=== PATIENT | female | born 1980 | race Caucasian/White ===

== ENCOUNTER 2023-10-09 11:54 | Outpatient (AMB) | payer MEDICAID, SELFPAY ==
--- NOTE | 2023-10-09 12:04 | MHC.OFFVIS ---
Vital Signs 10/09/23 12:11 Height 5 ft 2 in Weight 151 lb 3.794 oz BMI 27.7 BP 130/86 Blood Pressure Location Lt brachial Position Sitting Pulse 62 Pulse Source Pulse Oximeter Pulse Oximetry (%) 100 Oxygen Delivery Method Room Air Intake Visit Reasons: colo scrn; small bowel obstruction Intake Note: Kandy presents in office today for a scheduled initial assessment and colo scrn. CC; Pt reports that they were hospitalized in 01/2023. Pt reports that they had been diagnosed with a small bowel obstruction. Pt also has previous hx of GERD which they have a few questions about. Pt denies any additional concerns or questions. Pt reports that they have previous hx of colo s/p, within the last 5 years. Hard Candy Batch Mixer Required: No Allergies No Known Allergies Allergy (Verified 10/09/23 12:05) HPI HPI colo scrn; small bowel obstruction: Details: 42-year-old female with past medical history of migraine headaches, fibromyalgia, depression/anxiety, history of hysterectomy, abdominal pain, gastric bypass in 2016, SBO in January of 2023 is here today for initial consultation. Patient reports that back in January she was admitted to [facility] with small-bowel obstruction. No bowel resection done at that time. Diagnostic laparoscopy with laparoscopic lysis of adhesions, repair of iatrogenic enterotomy and serosal tear. Patient reports that she has frequent abdominal bloating and discomfort. Pain feels like cramping and sharp at times. Patient reports that she feels like she is moving her bowels well without any issues at this time. Not on any particular diet at this moment. Patient denies any nausea or vomiting. Reports dyspepsia with occasional dysphagia without odynophagia. Denies any melena, hematochezia, unintentional weight loss or ribbon like stools. [facility] Medical History Dizziness Fibromyalgia Low back pain Migraine Anxiety Cobalamin deficiency Premature menopause Surgical History History of hysterectomy History of gastric bypass Family History Father Hypertension Myocardial infarction Heart disease Type 2 diabetes mellitus Mother Hypertension Type 2 diabetes mellitus Depressive disorder Maternal Grandmother Type 2 diabetes mellitus Malignant tumor of pancreas Physical Exam Vital Signs: Last Vital Signs Pulse 62 10/09/23 12:11 BP 130/86 10/09/23 12:11 Pulse Ox 100 10/09/23 12:11 Oxygen Delivery Method Room Air 10/09/23 12:11 BMI result Body Mass Index 27.7 Const General: healthy appearing, no acute distress and well developed Nutritional Appearance: well nourished Orientation/consciousness: patient oriented x3 Resp Effort & Inspection: normal respiratory effort, able to speak in complete sentences, no tracheal deviation and symmetric chest movement Auscultation: clear to auscultation bilaterally Cardio Rate: regular rate GI Inspection: Yes normal to inspection and No distended Palpation (GI): Soft to palpation, not firm, nontender and No hepatosplenomegaly present Auscultation: normal bowel sounds General: Yes no CVA tenderness Back/Spine/Pelvis Back: no CVA tenderness Skin General skin exam: elasticity normal, turgor normal and dry skin Neuro General: patient oriented x3 Psych Appearance: grossly normal Mental Status: mental status grossly normal Assessment & Plan Assessment & Plan (1) Postprandial epigastric pain: Code(s): R10.13 - Epigastric pain (2) GERD (gastroesophageal reflux disease): Code(s): K21.9 - Gastro-esophageal reflux disease without esophagitis Qualifiers: Esophagitis presence: esophagitis presence not specified Qualified Code(s): K21.9 - Gastro-esophageal reflux disease without esophagitis (3) Dysphagia: Code(s): R13.10 - Dysphagia, unspecified Qualifiers: Dysphagia type: pharyngoesophageal phase Qualified Code(s): R13.14 - Dysphagia, pharyngoesophageal phase (4) Postprandial abdominal bloating: Code(s): R14.0 - Abdominal distension (gaseous) (5) Constipation: Code(s): K59.00 - Constipation, unspecified Qualifiers: Constipation type: slow transit constipation Qualified Code(s): K59.01 - Slow transit constipation Plan Will rule out celiac, will check vitamin B12, folate and vitamin-D levels. Will check iron profile. History of gastric bypass possibility of malabsorption. Will check CBC and CMP. We will also check lipase patient does report epigastric pain and sometimes pain in left upper quadrant. Possible that this pain is related also to patient not emptying her bowels completely. Occasional loose stools with abdominal bloating. Discussed with patient low FODMAP diet. List of food recommended as well as list of food to avoid given to patient. If patient continues to have symptoms even though she moves her bowels we might rule out pancreatic insufficiency. Reports significant reflux will send patient for upper GI small bowels study. Will start her on pantoprazole in the morning half an hour before breakfast and famotidine at bedtime. Avoid dietary triggers and late night snacking. Staying upright for minimum 3 hours after meals discussed with patient. Patient will start taking senna daily if 2 tablets too much take 1. Increase fluid intake and activity to promote better bowel motility. Patient will return in 2-3 months, sooner on as needed basis. She is agreeable to this plan and verbalizes understanding of instructions. She was given the opportunity to ask questions and all questions answered. Thank you for allowing me to participate in her care Orders: Orders Transglutaminase Ab IgG Today R10.9 - Unspecified abdominal pain Vitamin B12 and Folate Today R19.7 - Diarrhea, unspecified Vitamin D 25-OH (D2 and D3) Today E55.9 - Vitamin D deficiency, unspecified FL upper GI small bowel Today R13.10 - Dysphagia, unspecified Transglutaminase IgA Today R10.9 - Unspecified abdominal pain IRON PROFILE Today D64.9 - Anemia, unspecified Lipase Today R10.9 - Unspecified abdominal pain TSH reflex Free T4 Today K59.00 - Constipation, unspecified Complete Blood Count no Diff Today K21.9 - Gastro-esophageal reflux disease without esophagitis Comprehensive Met. Panel Today K21.9 - Gastro-esophageal reflux disease without esophagitis Medications: New pantoprazole take one tablet half an hour before breakfast 40 mg PO DAILY 30 tabs 3RF K21.9 - Gastro-esophageal reflux disease without esophagitis famotidine 40 mg PO BEDTIME 30 tabs 3RF K21.9 - Gastro-esophageal reflux disease without esophagitis sennosides (Natural Senna Laxative) 17.2 mg (2 x 8.6 mg) PO BEDTIME 60 tabs 3RF constipation K59.00 - Constipation, unspecified Coding Level of Care Code New Pt Level 4 (54716) Diagnoses Postprandial epigastric pain R10.13 Gastroesophageal reflux disease, unspecified whether esophagitis present K21.9 Esophagitis presence: esophagitis presence not specified Pharyngoesophageal dysphagia R13.14 Dysphagia type: pharyngoesophageal phase Postprandial abdominal bloating R14.0 Slow transit constipation K59.01 Constipation type: slow transit constipation Time Spent (min) 50 Comment 30 minutes spent with patient and 20 minutes spent reviewing all her records
[2023-10-09 12:11] VITALS: BP 130/86; PULSE 62; O2SAT 100; BMI 27.7
== END 2023-10-09 12:46 | disposition home or self-care (01) ==
PROVIDERS: PCP Nurse Practitioner; Visit Provider Nurse Practitioner Family
DX: R10.13 Epigastric pain (principal); K21.9 Gastro-esophageal reflux disease without esophagitis; R13.14 Dysphagia, pharyngoesophageal phase; R14.0 Abdominal distension (gaseous); K59.01 Slow transit constipation
CPT/HCPCS: 99204

== ENCOUNTER → 2023-10-09 11:54 | Outpatient (BNVA) | payer MEDICAID, SELFPAY | PROVIDERS: PCP Nurse Practitioner; Visit Provider Nurse Practitioner Family | DX: K21.9 Gastro-esophageal reflux disease without esophagitis (principal); K59.01 Slow transit constipation; R14.0 Abdominal distension (gaseous); R10.13 Epigastric pain; R13.10 Dysphagia, unspecified; R19.7 Diarrhea, unspecified | CPT/HCPCS: 99202 ==

== ENCOUNTER 2023-11-28 08:15 | Outpatient (REF) | payer MEDICAID, SELFPAY ==
--- NOTE | ~2023-11-28 | FL_ITS ---
EXAMINATION: XR FLUOROSCOPY UPPER GI WITH SMALL BOWEL FOLLOW-THROUGH CLINICAL INFORMATION: 43-year-old female with prior history of gastric bypass surgery, complaining of dysphagia, burning abdominal and epigastric pain, and diarrhea. COMPARISON: None TECHNIQUE: Fluoroscopic air contrast upper GI examination was performed utilizing standard techniques with thin and thick barium and effervescent granules. Numerous spot images were obtained. Several fluoroscopic image hold cine sequences were also obtained. This was followed by small bowel series utilizing overhead images at standard intervals, with fluoroscopic spot imaging of the small bowel and terminal ileum during the exam. FINDINGS: UPPER GI SERIES: Lateral cine images of the oropharynx and hypopharynx demonstrate normal swallow mechanism with normal epiglottic inversion and soft palate elevation. No tracheal penetration, glottic or subglottic aspiration identified. No nasopharyngeal reflux present. Hypopharyngeal structures appear normal without evidence of mass or diverticulum. There was mild cricopharyngeal achalasia. Dual and single contrast images of the esophagus demonstrate normal caliber, contour, and mucosal pattern. Persistent contractile appearing narrowing of the upper esophagus at the thoracic inlet, seen on all series, possibly on esophageal web or unusual esophageal contraction. (Refer to RF 1-8, image 24). Otherwise, no additional evidence of stricture, mass, or ulcerations identified. Esophageal peristalsis was mildly disorganized. Small type I hiatus hernia. No significant gastroesophageal reflux was seen during the course of the examination and on reflux views. Dual contrast and single contrast images of the stomach demonstrated normal expected postoperative appearance of the gastric pouch and gastrojejunostomy. There are a few tiny foci of contrast pooling within the gastric pouch suggesting superficial aphthous ulcers. Findings suggest mild erosive gastritis. Contrast freely passed into the proximal jejunum without delay. SMALL BOWEL SERIES: Valet Cashier image demonstrates surgical chain sutures overlying the epigastric region and extending into the left paramedian and left mid abdomen from prior gastric bypass surgery. There is a normal/nonspecific bowel gas pattern. There is no abnormally dilated loop. There is a normal amount of stool within the colon. There are no abnormal soft tissue calcifications identified. No organomegaly identified. Lung bases are clear. Heart size is normal. Bony structures demonstrate a mild levoconvex thoracolumbar scoliosis, apex at L1-2. The SI joints have a normal appearance. The hip joints have a normal appearance. No suspicious bone lesions. The gastrojejunostomy is widely patent without functional obstruction. No definite reflux of contrast into the excluded duodenum or stomach, nor at the efferent chele loop. The jejunal afferent Chele loop has a mildly thickened fold appearance, which may represent mild enteritis/peptic disease. The remainder of the jejunum has a normal appearance. The ileum has a normal fold pattern and caliber. Overhead and spot images demonstrate no strictures, mass, or additional abnormal mucosal patterns. No significant dilution of contrast. Contrast reached the right colon by 30 minutes. FLUOROSCOPY TIME: 5 minutes Number of Spot Images: 2 overheads, 2 director of scout work overheads, and 17 spot images Number of cines obtained: 14 DOSE AREA PRODUCT: [id number] uGy-m2 (microgray-meter squared) FL/FL upper GI w air w SBFT IMPRESSION: 1. Mild cricopharyngeal achalasia. 2. Mild disorganized esophageal peristalsis. Persistent short segment contractile narrowing of the upper one third of the esophagus at the thoracic inlet, possibly representing a web or unusual esophageal contraction. No definite mucosal abnormalities of the esophagus. 3. Small type I hiatus hernia. 4. No definite gastroesophageal reflux identified during the course of the exam. 5. Expected appearance of the gastric pouch and jejunostomy postoperative. Several small foci of contrast pooling within the gastric pouch may represent superficial aphthous type ulcers, concerning for erosive gastritis. 6. The jejunal afferent chele loop demonstrates mild fold thickening, which may be secondary to peptic disease/enteritis. 7. No reflux into the efferent Chele loop or excluded stomach. 8. Small bowel series shows no additional abnormalities in the jejunum or ileum. Contrast reaches the right colon in 30 minutes. Electronically signed by: Dharmesh De Santiago MD 11/28/2023 11:47 AM EDT
== END 2023-11-28 08:16 | disposition home or self-care (01) ==
LOC: HO.XRAY 08:15
PROVIDERS: PCP Nurse Practitioner; Visit Provider Nurse Practitioner Family
DX: R13.10 Dysphagia, unspecified (principal)
CPT/HCPCS: 74246; 74248

== ENCOUNTER → 2023-11-28 08:23 | Outpatient (BNV) | payer MEDICAID, SELFPAY | PROVIDERS: PCP Nurse Practitioner; Visit Provider Radiology Diagnostic Radiology | DX: R13.10 Dysphagia, unspecified (principal); R10.13 Epigastric pain; R19.7 Diarrhea, unspecified; Z98.84 Bariatric surgery status | CPT/HCPCS: 74246; 74248 ==

== ENCOUNTER 2023-12-25 08:54 | Outpatient (REF) | payer MEDICAID, SELFPAY ==
[2023-12-25 09:39] LABS: Hematocrit 36.2 % (37.0-47.0); Hemoglobin 11.7 g/dl (12.0-16.0); Mean Corpuscular HGB Conc 32.3 g/dl (31.0-35.0); Mean Corpuscular Hemoglobin 28.2 pg (27.0-33.0); Mean Corpuscular Volume 87.2 fL (80.0-98.0); Mean Platelet Volume 9.4 fL (9.4-12.3); Platelet Count 313 X10*3/uL (160-400); Red Blood Count 4.15 X10*6/uL (4.20-5.50); Red Cell Distribution Width 15.4 % (11.0-16.0); White Blood Count 6.9 X10*3/uL (4.8-10.8)
[2023-12-25 12:14] LABS: Alanine Aminotransferase 27 U/L (0-31); Albumin Level 4.1 g/dL (3.5-5.0); Alkaline Phosphatase 97 U/L (39-117); Anion Gap 10 (12-20); Aspartate Amino Transferase 30 U/L (5-31); Bilirubin Total 0.3 mg/dL (0.0-1.0); Blood Urea Nitrogen 21 mg/dL (9-16); Carbon Dioxide 26 mmol/L (22-29); Chloride 109 mmol/L (96-108); Estimated Glomerular Filt Rate > 60; Glucose Random 90 mg/dL (60-115); Iron 36 mcg/dL (30-160); Lipase 59 U/L (8-78); Percent Iron Saturation 9 % (15-50); Potassium 4.2 mmol/L (3.3-5.1); Sodium 141 mmol/L (135-145); Total Iron Binding Capacity 388 mcg/dL (228-428); Total Protein 7.6 g/dL (6.5-8.0); Unsaturated Iron Binding 352 ug/dL
[2023-12-25 12:52] LABS: Folate 12.7 ng/mL (> or = 4.0); Vitamin B12 395 pg/mL (200-900)
[2023-12-25 12:53] LABS: TSH reflex Free T4 1.77 uIU/mL (0.32-4.0)
[2023-12-26 19:44] LABS: Transglutaminase Ab IgG <1.0 U/mL; Transglutaminase IgA <1.0 U/mL
[2023-12-29 16:29] LABS: Vitamin D 25-OH, D2 <4 ng/mL; Vitamin D 25-OH, D3 33 ng/mL; Vitamin D 25-OH, Total 33 ng/mL (30-100)
== END 2023-12-25 08:55 | disposition home or self-care (01) ==
LOC: HO.LAB 08:54
PROVIDERS: PCP Nurse Practitioner; Visit Provider Nurse Practitioner Family
DX: K21.9 Gastro-esophageal reflux disease without esophagitis (principal); D64.9 Anemia, unspecified; R10.9 Unspecified abdominal pain; R19.7 Diarrhea, unspecified; E55.9 Vitamin D deficiency, unspecified; K59.00 Constipation, unspecified
CPT/HCPCS: 36415; 80053; 82306; 82607; 82746; 83540; 83690; 84443; 85027; 86364

== ENCOUNTER 2023-12-27 09:01 | Outpatient (AMB) | payer MEDICAID, SELFPAY ==
--- NOTE | 2023-12-27 09:02 | MHC.OFFVIS ---
Vital Signs 12/27/23 09:03 Height 5 ft 2 in Weight 153 lb 14.122 oz BMI 28.1 BP 108/66 Blood Pressure Location Rt brachial Position Sitting Pulse 66 Pulse Source Pulse Oximeter Pulse Oximetry (%) 99 Oxygen Delivery Method Room Air Intake Visit Reasons: 2 month follow up Intake Note: PRESCRIPTIONS LAST GENERATED sennosides 8.6 mg tablet?(Natural Senna Laxative)?17.2 mg (2 x 8.6 mg) PO BEDTIME 60 tabs 3RF Zhou,Sharlene D 10/09/23 12:35 (Transmitted) famotidine 40 mg tablet?40 mg PO BEDTIME 30 tabs 3RF Zhou,Sharlene D 10/09/23 12:35 (Transmitted) pantoprazole 40 mg tablet,delayed release?40 mg PO DAILY 30 tabs 3RF Zhou,Sharlene D 10/09/23 12:35 (Transmitted) Relevant Flags or Indicators ? Requires Glue Bone Drier? N; Pt was reminded to have labs done prior to appt on 12/23/2023 Kandy presents in office today for a scheduled 2 mos FUV. CC; Labs, and med orders placed. ?UGIS also performed (11.28.23) Relevant GI Sx as reported per pt? Nausea ? Reflux ? Dysphagia ? Fecal abnormalities o?? Constipation -- Intermittently o?? Diarrhea ? Abdominal Pain o?? Lower B/L ? Bloating ? Hx of any recent surgeries? None Pt reports that sx have not improved since their last visit. Glue Bone Drier Required: No Allergies No Known Allergies Allergy (Verified 12/27/23 09:03) HPI HPI 2 month follow up: Details: LAST VISIT: Postprandial epigastric pain GERD (gastroesophageal reflux disease) Dysphagia Postprandial abdominal bloating Constipation Plan Will rule out celiac, will check vitamin B12, folate and vitamin-D levels. Will check iron profile. History of gastric bypass possibility of malabsorption. Will check CBC and CMP. We will also check lipase patient does report epigastric pain and sometimes pain in left upper quadrant. Possible that this pain is related also to patient not emptying her bowels completely. Occasional loose stools with abdominal bloating. Discussed with patient low FODMAP diet. List of food recommended as well as list of food to avoid given to patient. If patient continues to have symptoms even though she moves her bowels we might rule out pancreatic insufficiency. Reports significant reflux will send patient for upper GI small bowels study. Will start her on pantoprazole in the morning half an hour before breakfast and famotidine at bedtime. Avoid dietary triggers and late night snacking. Staying upright for minimum 3 hours after meals discussed with patient. Patient will start taking senna daily if 2 tablets too much take 1. Increase fluid intake and activity to promote better bowel motility. Patient will return in 2-3 months, sooner on as needed basis. She is agreeable to this plan and verbalizes understanding of instructions. She was given the opportunity to ask questions and all questions answered. ? Thank you for allowing me to participate in her care Orders Orders Transglutaminase Ab IgG Today R10.9 Vitamin B12 and Folate Today R19.7 Vitamin D 25-OH (D2 and D3) Today E55.9 FL upper GI small bowel Today R13.10 Transglutaminase IgA Today R10.9 IRON PROFILE Today D64.9 Lipase Today R10.9 TSH reflex Free T4 Today K59.00 Complete Blood Count no Diff Today K21.9 Comprehensive Met. Panel Today K21.9 Medications New pantoprazole take one tablet half an hour before breakfast 40 mg PO DAILY 30 tabs 3RF K21.9 famotidine 40 mg PO BEDTIME 30 tabs 3RF K21.9 sennosides (Natural Senna Laxative) 17.2 mg (2 x 8.6 mg) PO BEDTIME 60 tabs 3RF constipation K59.00 TODAY'S VISIT Patient is here today for follow-up and to discuss upper GI series results as well as lab results. Upper GI series showed disorganized motility as well as narrowing of her esophagus. Patient had normal lab results. Patient continues to have trouble swallowing and acid reflux reports bilateral upper abdomen cramping and bloating. Occasional postprandial loose stools, however she states that she is moving her bowels better now. Currently is taking pantoprazole in the morning and famotidine at bedtime. Patient states that her symptoms are the same and does not feel like there is much improvement since starting PPI and H2 galina. Patient denies nausea or vomiting. Patient denies melena, hematochezia, unintentional weight loss or ribbon like stools. [facility] Medical History Dizziness Fibromyalgia Low back pain Migraine Anxiety Cobalamin deficiency Premature menopause Surgical History History of hysterectomy History of gastric bypass Family History Father Hypertension Myocardial infarction Heart disease Type 2 diabetes mellitus Mother Hypertension Type 2 diabetes mellitus Depressive disorder Maternal Grandmother Type 2 diabetes mellitus Malignant tumor of pancreas Review of Systems Const Denies weight gain and Denies weight loss ENT Reports no additional complaints, Reports dysphagia (Dry food like bread) and Denies odynophagia Card Reports no additional complaints Resp Reports no additional complaints GI Denies abdominal pain, Denies belching, Denies melena, Denies bloating, Denies change in bowel habits, Reports constipation (Occasional), Reports dysphagia (Dry food like bread), Denies excessive flatus, Denies dyspepsia, Reports heartburn, Denies diarrhea, Denies loose stools, Denies nausea, Denies odynophagia and Denies vomiting Reports no additional complaints Musc Reports no additional complaints Neuro Reports no additional complaints Psych Reports no additional complaints Endo Reports no additional complaints Physical Exam Vital Signs: Last Vital Signs Pulse 66 12/27/23 09:03 BP 108/66 12/27/23 09:03 Pulse Ox 99 12/27/23 09:03 Oxygen Delivery Method Room Air 12/27/23 09:03 BMI result Body Mass Index 28.1 Const General: healthy appearing, no acute distress and well developed Nutritional Appearance: well nourished Orientation/consciousness: patient oriented x3 Resp Effort & Inspection: normal respiratory effort, able to speak in complete sentences, no tracheal deviation and symmetric chest movement Auscultation: clear to auscultation bilaterally Cardio Rate: regular rate GI Inspection: Yes normal to inspection and No distended Palpation (GI): Soft to palpation, not firm, nontender and No hepatosplenomegaly present Auscultation: normal bowel sounds General: Yes no CVA tenderness Back/Spine/Pelvis Back: no CVA tenderness Skin General skin exam: elasticity normal, turgor normal and dry skin Neuro General: patient oriented x3 Psych Appearance: grossly normal Mental Status: mental status grossly normal Results Reviewed Results Reviewed: Laboratory Tests 12/25/23 09:22 Hgb 11.7 L Hct 36.2 L MCV 87.2 Plt Count 313 Iron 36 Total Bilirubin 0.3 AST 30 ALT 27 Lipase 59 Vitamin B12 395 25-OH Vitamin D Total 33 Folate 12.7 TSH 1.77 Tiss Transglutamin IgG <1.0 Tiss Transglutamin IgA <1.0 UPPER GI FINDINGS: UPPER GI SERIES: Lateral cine images of the oropharynx and hypopharynx demonstrate normal swallow mechanism with normal epiglottic inversion and soft palate elevation. No tracheal penetration, glottic or subglottic aspiration identified. No nasopharyngeal reflux present. Hypopharyngeal structures appear normal without evidence of mass or diverticulum. There was mild cricopharyngeal achalasia. Dual and single contrast images of the esophagus demonstrate normal caliber, contour, and mucosal pattern. Persistent contractile appearing narrowing of the upper esophagus at the thoracic inlet, seen on all series, possibly on esophageal web or unusual esophageal contraction. (Refer to RF 1-8, image 24). Otherwise, no additional evidence of stricture, mass, or ulcerations identified. Esophageal peristalsis was mildly disorganized. Small type I hiatus hernia. No significant gastroesophageal reflux was seen during the course of the examination and on reflux views. Dual contrast and single contrast images of the stomach demonstrated normal expected postoperative appearance of the gastric pouch and gastrojejunostomy. There are a few tiny foci of contrast pooling within the gastric pouch suggesting superficial aphthous ulcers. Findings suggest mild erosive gastritis. Contrast freely passed into the proximal jejunum without delay. SMALL BOWEL SERIES: Structural Steel Painter image demonstrates surgical chain sutures overlying the epigastric region and extending into the left paramedian and left mid abdomen from prior gastric bypass surgery. There is a normal/nonspecific bowel gas pattern. There is no abnormally dilated loop. There is a normal amount of stool within the colon. There are no abnormal soft tissue calcifications identified. No organomegaly identified. Lung bases are clear. Heart size is normal. Bony structures demonstrate a mild levoconvex thoracolumbar scoliosis, apex at L1-2. The SI joints have a normal appearance. The hip joints have a normal appearance. No suspicious bone lesions. The gastrojejunostomy is widely patent without functional obstruction. No definite reflux of contrast into the excluded duodenum or stomach, nor at the efferent michael loop. The jejunal afferent Michael loop has a mildly thickened fold appearance, which may represent mild enteritis/peptic disease. The remainder of the jejunum has a normal appearance. The ileum has a normal fold pattern and caliber. Overhead and spot images demonstrate no strictures, mass, or additional abnormal mucosal patterns. No significant dilution of contrast. Contrast reached the right colon by 30 minutes. FLUOROSCOPY TIME: 5 minutes Number of Spot Images: 2 overheads, 2 adjunct mathematics instructor overheads, and 17 spot images Number of cines obtained: 14 DOSE AREA PRODUCT: [id number] uGy-m2 (microgray-meter squared) FL/FL upper GI w air w SBFT IMPRESSION: 1. Mild cricopharyngeal achalasia. 2. Mild disorganized esophageal peristalsis. Persistent short segment contractile narrowing of the upper one third of the esophagus at the thoracic inlet, possibly representing a web or unusual esophageal contraction. No definite mucosal abnormalities of the esophagus. 3. Small type I hiatus hernia. 4. No definite gastroesophageal reflux identified during the course of the exam. 5. Expected appearance of the gastric pouch and jejunostomy postoperative. Several small foci of contrast pooling within the gastric pouch may represent superficial aphthous type ulcers, concerning for erosive gastritis. 6. The jejunal afferent michael loop demonstrates mild fold thickening, which may be secondary to peptic disease/enteritis. 7. No reflux into the efferent Michael loop or excluded stomach. 8. Small bowel series shows no additional abnormalities in the jejunum or ileum. Contrast reaches the right colon in 30 minutes. Assessment & Plan Assessment & Plan (1) Postprandial epigastric pain: Code(s): R10.13 - Epigastric pain (2) GERD (gastroesophageal reflux disease): Code(s): K21.9 - Gastro-esophageal reflux disease without esophagitis Qualifiers: Esophagitis presence: esophagitis presence not specified Qualified Code(s): K21.9 - Gastro-esophageal reflux disease without esophagitis (3) Dysphagia: Code(s): R13.10 - Dysphagia, unspecified Qualifiers: Dysphagia type: esophageal phase Qualified Code(s): R13.19 - Other dysphagia (4) Postprandial abdominal bloating: Code(s): R14.0 - Abdominal distension (gaseous) (5) Constipation: Code(s): K59.00 - Constipation, unspecified Qualifiers: Constipation type: slow transit constipation Qualified Code(s): K59.01 - Slow transit constipation (6) Cricopharyngeal achalasia: Code(s): K22.0 - Achalasia of cardia (7) Esophageal dysmotility: Code(s): K22.4 - Dyskinesia of esophagus Plan Upper GI series discussed with patient. Will send patient for upper endoscopy. Message sent to surgical schedulers. Stop pantoprazole and will start Nexium every morning. Avoid dietary triggers and late night snacking. Patient was instructed to chew her food very well and swallow slowly. Drink liquids with every bite. Continue famotidine at bedtime. I will see patient before her endoscopy unless patient will be able to book it sooner than will see her after the procedure. Patient will need esophageal stretching. Contrast pooling seen on upper GI series most likely irritation like ulcer. Patient will take famotidine at bedtime and if she does not have relief and continues to have epigastric pain we can change it to sucralfate. She is agreeable to current plan of care and verbalizes understanding of instructions. She was given the opportunity to ask questions and all questions answered. Thank you for allowing me to participate in her care Medications: New esomeprazole magnesium (Nexium) 40 mg PO DAILY 30 caps 5RF K21.9 - Gastro-esophageal reflux disease without esophagitis Discontinued pantoprazole take one tablet half an hour before breakfast Discontinued Reason: Doctor's Order 40 mg PO DAILY 30 tabs 3RF K21.9 - Gastro-esophageal reflux disease without esophagitis Coding Level of Care Code Est Pt Level 4 (61280) Complex EM visit Add On G2211 Diagnoses Postprandial epigastric pain R10.13 Gastroesophageal reflux disease, unspecified whether esophagitis present K21.9 Esophagitis presence: esophagitis presence not specified Esophageal dysphagia R13.19 Dysphagia type: esophageal phase Postprandial abdominal bloating R14.0 Slow transit constipation K59.01 Constipation type: slow transit constipation Cricopharyngeal achalasia K22.0 Esophageal dysmotility K22.4 Time Spent (min) 40 Comment 25 minutes spent with patient and additional 15 minutes spent reviewing her records
[2023-12-27 09:03] VITALS: BP 108/66; PULSE 66; O2SAT 99; BMI 28.1
== END 2023-12-27 09:52 | disposition home or self-care (01) ==
LOC: HO.HGI 09:02
PROVIDERS: PCP Nurse Practitioner; Visit Provider Nurse Practitioner Family
DX: K21.9 Gastro-esophageal reflux disease without esophagitis (principal); R13.19 Other dysphagia; K59.01 Slow transit constipation; K22.0 Achalasia of cardia; K22.4 Dyskinesia of esophagus
CPT/HCPCS: 99214; G2211

== ENCOUNTER → 2023-12-27 09:01 | Outpatient (BNVA) | payer MEDICAID, SELFPAY | PROVIDERS: PCP Nurse Practitioner; Visit Provider Nurse Practitioner Family | DX: K21.9 Gastro-esophageal reflux disease without esophagitis (principal); R10.13 Epigastric pain; R13.19 Other dysphagia; R14.0 Abdominal distension (gaseous); K59.01 Slow transit constipation; K22.0 Achalasia of cardia | CPT/HCPCS: 99212 ==